=== PATIENT | female | born 1975 | race Caucasian/White ===

== ENCOUNTER 2022-09-01 12:31 | Emergency (ER) | payer SELFPAY ==
[~2022-09-01] VITALS: Ht 157.5 cm; Wt 63.5 kg
[2022-09-01 12:39] VITALS: BP 169/90; PULSE 97; RESP 18; TEMP 97.9; O2SAT 99
[2022-09-01] MEDS ORDERED: KETOROLAC 30 MG/ML VIAL IM ONE (13:05)
[2022-09-01] MEDS ORDERED: lisinopriL 20 MG TAB PO ONE (13:25)
[2022-09-01] MEDS ORDERED: ONDANSETRON 4 MG ODT PO ONE (14:05)
[2022-09-01 14:26] LABS: BASOPHILS % (AUTO) 0.6 % (0.0-2.0); HEMATOCRIT 36.8 % (36-48); HEMOGLOBIN 12.2 g/dL (12.0-16.0); LYMPHOCYTES # (AUTO) 0.7 K/uL (2.5-16.5); LYMPHOCYTES % (AUTO) 10.2 % (20.5-51.1); MEAN CORPUSCULAR HEMOGLOBIN 28 pg (27-31); MEAN CORPUSCULAR HGB CONC 33 g/dL (33-37); MEAN CORPUSCULAR VOLUME 82.9 fL (80-94); MONOCYTES # (AUTO) 0.2 K/uL (0.8-1.0); MONOCYTES % (AUTO) 2.5 % (1.7-9.3); NEUTROPHILS # (AUTO) 5.8 K/uL (1.8-7.7); NEUTROPHILS % (AUTO) 86.7 % (42.2-75.2); PLATELET COUNT (AUTO) 216 K/uL (140-450); RED BLOOD CELL COUNT(AUTO) 4.44 MIL/uL (4.20-5.40); RED CELL DISTRIBUTION WIDTH 14.3 % (11.6-13.7); WHITE BLOOD COUNT (AUTO) 6.7 K/uL (4.8-10.8)
[2022-09-01 14:57] LABS: ALBUMIN 4.3 g/dL (3.4-5.0); ANION GAP 16.2 (8-16); CARBON DIOXIDE 24.5 mmol/L (21-32); CREATININE 0.6 mg/dL (0.6-1.3); POTASSIUM 3.7 mmol/L (3.5-5.1); TOTAL BILIRUBIN 0.5 mg/dL (0.0-1.0)
[2022-09-01 15:08] VITALS: BP 143/82; PULSE 75; RESP 16
--- NOTE | 2022-09-01 15:13 | NUR ---
Pt left without speaking to provider. I walked outside and flagged pt down while in her car, pt aware that staff wanted to speak with her and still drove off in red 4 door sedan. Daughter was driving and pt was passenger. Provider aware. Pt was just reassessed prior to leaving, to update vital signs and status. Pt had no pain. Vss, bp was lower, breathing equal and unlabored, speech clear, no ss of acute distress.
[2022-09-01 15:17] VITALS: O2SAT 99
== END 2022-09-01 15:13 | disposition home or self-care (01) ==
LOC: MED 12:31
DX: I10 Essential (primary) hypertension (principal); R07.9 Chest pain, unspecified; R06.02 Shortness of breath; E78.5 Hyperlipidemia, unspecified; Z79.899 Other long term (current) drug therapy
CPT/HCPCS: 36415; 71045; 80053; 83880; 84484; 85025; 93005; 99285; Q0162